=== PATIENT | female | born 2000 | race Hispanic/Latino ===

== ENCOUNTER 2022-11-08 19:15 | Inpatient (IN) | payer OTHER ==
[~2022-11-08] VITALS: Ht 162.6 cm; Wt 107.5 kg
[2022-11-08] MEDS ORDERED: ONDANSETRON HCL INJ 2MG/ML 2ML 2 MG/ML VIAL IV STA ×2 (19:42→20:39)
[2022-11-08] MEDS ORDERED: SODIUM CHLORIDE 0.9% 1000ML 1,000 ML IV STA ×2 (19:42→21:52)
[2022-11-08] MEDS ORDERED: FAMOTIDINE 20 MG/2 ML VIAL IV STA (20:06)
[2022-11-08 20:08] LABS: BASOPHILS % 0.2 % (0.0-1.0); HEMATOCRIT 38.5 % (34.2-44.1); HEMOGLOBIN 12.8 g/dL (12.0-16.0); LYMPHOCYTES # (AUTO) 1.2 (1.0-3.2); MEAN CORPUSCULAR HEMOGLOBIN 27.8 pg (28-32); MEAN CORPUSCULAR HGB CONC 33.2 g/dL (31-35); MEAN CORPUSCULAR VOLUME 83.5 fL (81-99); MONOCYTES # (AUTO) 0.2 (0.2-0.8); MONOCYTES % 1.5 % (4.4-11.3); NEUTROPHILS # (AUTO) 8.7 (2.1-6.9); NEUTROPHILS % 85.7 % (38.7-80.0); PLATELET COUNT 422 x10e3/uL (140-360); RED BLOOD COUNT 4.61 x10e6/uL (3.6-5.1); RED CELL DISTRIBUTION WIDTH 13.2 % (11.7-14.4)
[2022-11-08 20:28] LABS: ALBUMIN 4.3 g/dL (3.5-5.0); ALBUMIN/GLOBULIN RATIO 1.2 (0.8-2.0); ANION GAP 16.2 mmol/L (8-16); CALCIUM 9.5 mg/dL (8.4-10.2); CREATININE, SERUM 0.67 mg/dL (0.57-1.11); POTASSIUM 3.2 mmol/L (3.5-5.1)
[2022-11-08] MEDS ORDERED: PROMETHAZINE 25MG/ NS 50ML (IV) IV STA (20:56)
[2022-11-08 20:59] LABS: CLARITY,URINE SL CLOUDY (CLEAR); COLOR,URINE YELLOW (YELLOW); KETONES,URINE 2+ (NEGATIVE); LEUKOCYTE ESTERASE ,URINE NEGATIVE (NEGATIVE); NITRITE,URINE NEGATIVE (NEGATIVE); PROTEIN,URINE DIPSTICK TRACE (NEGATIVE); URINE UROBILINOGEN 0.2 mg/dL (0.2 - 1)
[2022-11-08] MEDS ORDERED: SODIUM CHLORIDE 0.9% 100 ML ONE (21:01)
[2022-11-08] MEDS ORDERED: IOPAMIDOL 370 MG/ML 100 ML INFUS..BTL INJ ONE (21:06)
[2022-11-08 21:11] LABS: AMORPHOUS SEDIMENT,URINE FEW (FEW); BACTERIA,URINE FEW /HPF; EPITHELIAL CELLS,URINE MODERATE /LPF; MUCUS,URINE MANY (RARE); WBC,URINE (MAN) 0-5 /HPF (0-5)
[2022-11-08 21:45] LABS: PHENCYCLIDINE SCREEN,URINE NEGATIVE (NEGATIVE)
[2022-11-08] MEDS ORDERED: HALOPERIDOL LACTATE 5 MG/ML VIAL IV ONE (21:45)
[2022-11-08 21:46] LABS: AMPHETAMINES SCREEN,URINE NEGATIVE (NEGATIVE); BENZODIAZEPINES SCREEN,URINE POSITIVE (NEGATIVE)
[2022-11-08] MEDS: METRONIDAZOLE 500MG/NS 100ML 100 ML IV SCH (22:25)
[2022-11-08] MEDS: CIPROFLOXACIN 400 MG/D5W 200ML 200 ML IV SCH (23:36)
[2022-11-08] MEDS: SODIUM CHLORIDE 0.9% 1000ML 1,000 ML IV SCH (23:37)
[2022-11-09] VITALS (10 sets, daily range): BP systolic 100–126; BP diastolic 46–82; PULSE 53–87; RESP 17–20; TEMP 97.5–99.3; O2SAT 99–100
[2022-11-09] MEDS ORDERED: SERTRALINE HCL50 MG PO (00:25)
[2022-11-09] MEDS ORDERED: ATIVAN0.5 MG PO (00:25)
[2022-11-09] MEDS ORDERED: QUETIAPINE FUM100 MG PO (00:25)
[2022-11-09] MEDS: ONDANSETRON HCL INJ 2MG/ML 2ML 2 MG/ML VIAL IV PRN ×6 (00:36→22:37)
[2022-11-09 05:46] LABS: BASOPHILS % 0.2 % (0.0-1.0); HEMOGLOBIN 11.8 g/dL (12.0-16.0); LYMPHOCYTES # (AUTO) 1.9 (1.0-3.2); LYMPHOCYTES % 18.7 % (18.0-39.1); MEAN CORPUSCULAR HEMOGLOBIN 27.5 pg (28-32); MEAN CORPUSCULAR HGB CONC 32.8 g/dL (31-35); MEAN CORPUSCULAR VOLUME 83.9 fL (81-99); MONOCYTES # (AUTO) 0.9 (0.2-0.8); MONOCYTES % 8.7 % (4.4-11.3); NEUTROPHILS # (AUTO) 7.4 (2.1-6.9); NEUTROPHILS % 72.1 % (38.7-80.0); PLATELET COUNT 358 x10e3/uL (140-360); RED BLOOD COUNT 4.29 x10e6/uL (3.6-5.1); RED CELL DISTRIBUTION WIDTH 13.8 % (11.7-14.4)
[2022-11-09] MEDS: SODIUM CHLORIDE 0.9% 1000ML 1,000 ML IV SCH ×3 (05:51→22:43)
[2022-11-09] MEDS: Morphine 4mg INJECTION 4 MG/ML INJ IV PRN ×5 (05:56→22:37)
[2022-11-09 06:23] LABS: ALBUMIN 3.6 g/dL (3.5-5.0); ALBUMIN/GLOBULIN RATIO 1.2 (0.8-2.0); ALKALINE PHOSPHATASE 59 IU/L (40-150); ANION GAP 12.1 mmol/L (8-16); BLOOD UREA NITROGEN < 5 mg/dL (7-26); CALCIUM 8.2 mg/dL (8.4-10.2); CARBON DIOXIDE 22 mmol/L (22-29); CHLORIDE 111 mmol/L (98-107); CREATININE, SERUM 0.64 mg/dL (0.57-1.11); GLUCOSE 107 mg/dL (74-118); POTASSIUM 3.1 mmol/L (3.5-5.1); SODIUM 142 mmol/L (136-145)
[2022-11-09 06:38] LABS: ALANINE AMINOTRANSFERASE < 6 IU/L (0-55); BUN/CREATININE RATIO 8 (6-25)
[2022-11-09] MEDS ORDERED: POTASSIUM CHLORIDE 20 MEQ TAB CR PO ONE (07:00)
[2022-11-09] MEDS: QUETIAPINE FUMARATE 100 MG TAB PO SCH (09:00)
[2022-11-09] MEDS: LORAZEPAM 0.5 MG TAB PO SCH ×2 (09:00→17:34)
[2022-11-09] MEDS: CIPROFLOXACIN 400 MG/D5W 200ML 200 ML IV SCH ×2 (10:03→21:38)
[2022-11-09] MEDS: METRONIDAZOLE 500MG/NS 100ML 100 ML IV SCH ×2 (10:03→21:37)
[2022-11-09] MEDS ORDERED: METOCLOPRAMIDE HCL 10 MG/2ML VIAL IV ONE ×2 (20:00→20:15)
[2022-11-09] MEDS: SERTRALINE HCL 50 MG TAB PO SCH (21:00)
[2022-11-10] VITALS (7 sets, daily range): BP systolic 101–132; BP diastolic 65–91; PULSE 62–74; RESP 16–20; TEMP 97.4–98.6; O2SAT 100
[2022-11-10] MEDS ORDERED: METOCLOPRAMIDE HCL 10 MG/2ML VIAL IV SCH ×2
[2022-11-10] MEDS: Morphine 4mg INJECTION 4 MG/ML INJ IV PRN ×6 (02:49→22:21)
[2022-11-10] MEDS: ONDANSETRON HCL INJ 2MG/ML 2ML 2 MG/ML VIAL IV PRN ×6 (02:49→22:21)
[2022-11-10] MEDS: SODIUM CHLORIDE 0.9% 1000ML 1,000 ML IV SCH ×2 (06:00→13:33)
[2022-11-10 06:20] LABS: BASOPHILS % 0.3 % (0.0-1.0); EOSINOPHILS % 0.4 % (0.0-6.0); HEMATOCRIT 35.7 % (34.2-44.1); HEMOGLOBIN 11.6 g/dL (12.0-16.0); LYMPHOCYTES # (AUTO) 3.7 (1.0-3.2); MEAN CORPUSCULAR HEMOGLOBIN 27.8 pg (28-32); MEAN CORPUSCULAR HGB CONC 32.5 g/dL (31-35); MEAN CORPUSCULAR VOLUME 85.6 fL (81-99); MONOCYTES # (AUTO) 0.6 (0.2-0.8); PLATELET COUNT 321 x10e3/uL (140-360); RED BLOOD COUNT 4.17 x10e6/uL (3.6-5.1); RED CELL DISTRIBUTION WIDTH 13.8 % (11.7-14.4)
[2022-11-10 06:51] LABS: ANION GAP 11.9 mmol/L (8-16); BLOOD UREA NITROGEN < 5 mg/dL (7-26); BUN/CREATININE RATIO 8 (6-25); CALCIUM 8.3 mg/dL (8.4-10.2); CARBON DIOXIDE 24 mmol/L (22-29); CHLORIDE 109 mmol/L (98-107); CREATININE, SERUM 0.63 mg/dL (0.57-1.11); GLUCOSE 86 mg/dL (74-118); SODIUM 142 mmol/L (136-145)
[2022-11-10 06:53] LABS: POTASSIUM 2.9 mmol/L (3.5-5.1)
[2022-11-10] MEDS: LORAZEPAM 0.5 MG TAB PO SCH ×2 (09:00→17:04)
[2022-11-10] MEDS: QUETIAPINE FUMARATE 100 MG TAB PO SCH (09:00)
[2022-11-10] MEDS: CIPROFLOXACIN 400 MG/D5W 200ML 200 ML IV SCH ×2 (09:44→22:30)
[2022-11-10] MEDS: METRONIDAZOLE 500MG/NS 100ML 100 ML IV SCH ×2 (09:44→22:20)
[2022-11-10] MEDS ORDERED: PROPOFOL IV EMULSION 10 MG/ML 20 ML VIAL ONE (12:12)
[2022-11-10] MEDS ORDERED: LIDOCAINE HCL 2% LOCAL INJ 5 ML SDV VIAL INJ ONE (12:12)
[2022-11-10] MEDS ORDERED: POTASSIUM CHLORIDE 20MEQ/100ML 200 ML IV ONE (15:30)
[2022-11-10] MEDS: SUCRALFATE 1 GM TAB PO SCH ×2 (17:05→22:19)
[2022-11-10] MEDS ORDERED: POTASSIUM CHLORIDE 20 MEQ TAB CR PO ONE (17:55)
[2022-11-10] MEDS: SERTRALINE HCL 50 MG TAB PO SCH (22:19)
[2022-11-11] MEDS: SODIUM CHLORIDE 0.9% 1000ML 1,000 ML IV SCH ×2 (00:12→16:33)
[2022-11-11 00:46] VITALS: BP 113/76; PULSE 78; RESP 16; TEMP 97.5; O2SAT 100
[2022-11-11] MEDS: Morphine 4mg INJECTION 4 MG/ML INJ IV PRN ×4 (02:51→16:32)
[2022-11-11] MEDS: ONDANSETRON HCL INJ 2MG/ML 2ML 2 MG/ML VIAL IV PRN ×3 (02:51→16:31)
[2022-11-11 05:06] VITALS: BP 132/95; PULSE 81; RESP 16; TEMP 97.2; O2SAT 99
[2022-11-11 06:44] LABS: BLOOD UREA NITROGEN < 5 mg/dL (7-26); CALCIUM 8.6 mg/dL (8.4-10.2); CARBON DIOXIDE 24 mmol/L (22-29); CHLORIDE 105 mmol/L (98-107); CREATININE, SERUM 0.65 mg/dL (0.57-1.11); GLUCOSE 101 mg/dL (74-118); SODIUM 139 mmol/L (136-145)
[2022-11-11 06:54] LABS: BUN/CREATININE RATIO 8 (6-25)
[2022-11-11 08:20] VITALS: BP 123/67; PULSE 82; RESP 16; TEMP 98.4; O2SAT 98
[2022-11-11] MEDS: CIPROFLOXACIN 400 MG/D5W 200ML 200 ML IV SCH (08:44)
[2022-11-11] MEDS: QUETIAPINE FUMARATE 100 MG TAB PO SCH (08:44)
[2022-11-11] MEDS: SUCRALFATE 1 GM TAB PO SCH ×3 (08:44→16:32)
[2022-11-11] MEDS: LORAZEPAM 0.5 MG TAB PO SCH ×2 (08:44→16:32)
[2022-11-11 08:53] VITALS: BP 123/67; PULSE 82; RESP 16; TEMP 98.4; O2SAT 98
[2022-11-11] MEDS: METRONIDAZOLE 500MG/NS 100ML 100 ML IV SCH (09:23)
[2022-11-11] MEDS ORDERED: POTASSIUM CHLORIDE 20 MEQ TAB CR PO ONE (11:30)
[2022-11-11 12:01] VITALS: BP 119/74; PULSE 91; RESP 16; TEMP 99; O2SAT 99
[2022-11-11] MEDS ORDERED: POTASSIUM CHLORIDE 20MEQ/100ML 100 ML IV ONE (12:30)
[2022-11-11 16:26] VITALS: BP 111/62; PULSE 85; RESP 19; TEMP 98.5; O2SAT 97
[2022-11-11] MEDS ORDERED: CIPRO500 MG PO (18:34)
[2022-11-11] MEDS ORDERED: FLAGYL375 MG (18:35)
[2022-11-11] MEDS ORDERED: POTASSIUM CHLO20 ME1 PO (18:36)
== END 2022-11-11 18:50 | disposition home or self-care (01) | DRG 392 ==
LOC: ER 19:27 → ERHOLD 21:57 → MED/SURG2 23:52 → OBSVTOIN 11-10 15:29
PROVIDERS: ADMIT Family Medicine; ATTEND Family Medicine
PROC: 0DB78ZX Excision of Stomach, Pylorus, Via Natural or Artificial Opening Endoscopic, Diagnostic (ICD-10-PCS; 2022-11-10)
PROC: 0DB68ZX Excision of Stomach, Via Natural or Artificial Opening Endoscopic, Diagnostic (ICD-10-PCS; 2022-11-10)
PROC: 0DB98ZX Excision of Duodenum, Via Natural or Artificial Opening Endoscopic, Diagnostic (ICD-10-PCS; principal; 2022-11-10 15:17)
DX: K52.9 Noninfective gastroenteritis and colitis, unspecified (principal); K31.7 Polyp of stomach and duodenum; F31.9 Bipolar disorder, unspecified; K21.9 Gastro-esophageal reflux disease without esophagitis; Z20.822 Contact with and (suspected) exposure to COVID-19; Z59.6 Low income
CPT/HCPCS: 0223U; 36415; 43239; 74177; 80048; 80053; 80307; 81001; 81025; 83690; 84132; 85025; 88305; 88342; 99284; G0378; J1630; J2001; J2270; J2405; J2550; J2765; J3480; J7030; J7050; Q9967

== ENCOUNTER 2024-01-27 18:51 | Emergency (ER) | payer OTHER ==
[~2024-01-27] VITALS: Ht 162.6 cm; Wt 122.5 kg
[~2024-01-27 18:51] MED LIST: ATIVAN0.5 MG PO; CIPRO500 MG PO; DICYCLOMINE HCL20 MG PO; FLAGYL375 MG; ONDANSETRON ODT4 MG PO; ONDANSETRON ODT4 MG SL; PANTOPRAZOLE SO40 MG PO; PEPCID20 MG PO; POTASSIUM CHLO20 ME1 PO; PROMETHAZINE HC25 MG PR; QUETIAPINE FUM100 MG PO; SERTRALINE HCL50 MG PO; ZOLOFT100 MG PO
[2024-01-27 18:55] VITALS: PULSE 86; RESP 17; TEMP 98.3; O2SAT 99
== END 2024-01-27 19:31 | disposition home or self-care (01) ==
LOC: ER 18:55
DX: B35.4 Tinea corporis (principal)
CPT/HCPCS: 99282